=== PATIENT | female | born 1990 | race African-American/Black ===

== ENCOUNTER 2017-10-06 15:23 | Emergency (ER) | payer SELFPAY ==
[~2017-10-06] VITALS: Ht 175.3 cm; Wt 78.5 kg
[2017-10-06 15:40] VITALS: BP 162/70
[2017-10-06 16:10] LABS: APPEARANCE,URINE CLEAR; BILIRUBIN, URINE NEGATIVE (NEGATIVE); GLUCOSE, URINE (UA) NEGATIVE (NEGATIVE); KETONES,URINE 1+ (NEGATIVE); LEUKOCYTE ESTERASE ,URINE 3+ (NEGATIVE); NITRITE,URINE NEGATIVE (NEGATIVE); PH,URINE 6 (4.5-8.0); PROTEIN,URINE NEGATIVE (NEGATIVE); UROBILINOGEN,URINE 1 MG/DL (0.0-1.0)
[2017-10-06 16:27] LABS: COLOR,URINE YELLOW
[2017-10-06 17:17] LABS: BASOPHILS % (AUTO) 0.7 % (0.0-2.0); EOSINOPHILS % (AUTO) 1.1 % (0.0-3.0); HEMATOCRIT 39.5 % (37.0-47.0); LYMPHOCYTES % (AUTO) 17.5 % (20.0-45.0); MEAN CORPUSCULAR VOLUME 82 FL (80-99); MONOCYTES % (AUTO) 8.7 % (1.0-10.0); NEUTROPHILS % (AUTO) 72.1 % (45.0-75.0); PLATELET COUNT 296 K/UL (150-450); RED CELL DISTRIBUTION WIDTH 13.6 % (11.6-14.8); WHITE BLOOD COUNT 9.4 K/UL (4.8-10.8)
[2017-10-06 17:24] LABS: ANION GAP 8 mmol/L (5-15); BLOOD UREA NITROGEN 10 mg/dL (7-18); CARBON DIOXIDE 25 MMOL/L (21-32); CHLORIDE 107 MMOL/L (98-107); CREATININE 0.8 MG/DL (0.55-1.30); POTASSIUM 3.6 MMOL/L (3.5-5.1); SODIUM 139 MMOL/L (136-145)
[2017-10-06 17:28] LABS: ALANINE AMINOTRANSFERASE 17 U/L (12-78); ALBUMIN 3.8 G/DL (3.4-5.0); ALKALINE PHOSPHATASE 52 U/L (46-116); ASPARTATE AMINO TRANSFERASE 15 U/L (15-37); BILIRUBIN,TOTAL 0.6 MG/DL (0.2-1.0)
[2017-10-06] MEDS ORDERED: ZyPREXA Zydis 10mg tab ORAL ONE (17:30)
--- NOTE | 2017-10-06 19:18 | Emergency Room Report ---
History of Present Illness General Chief Complaint: Behavioral Complaint Source: Patient (Sandie Reyna) Present Illness HPI 27-year-old female presents to the emergency department brought by ambulance after [address]. According to EMS patient stated that she ran out of her psychiatric medications and she does not feel well. Patient makes multiple bizarre comments during interview and physical exam. Such as "just gave last night to my son fernando and that the baby crying in the hallway is him" in regards to intermittent twitching patient states that "she feels that she is having mermaid fish fins trying to come out of her skin." She also reports that "last night she was unable to grow her butterfly wings." She denies drug use she states that she previously was prescribed Seroquel and has not taken it for "a long time " patient first denied previous psychiatric hospitalizations and then on subsequent interviews she stated that she had been to multiple psychiatric hospitals but she did not want to talk about it. Patient denies SI or HI. She also reports several times that she communicates with her father and another female whom are . HPI and ROS are limited due to pt. mental status and being poor historian. (Sandie Reyna) Allergies: Coded Allergies: No Known Allergies (Unverified , 10/06/17) Patient History Past Medical History: see triage record Past Surgical History: none Pertinent Family History: none Now: No Reviewed Nursing Documentation: PMH: Agreed, PSxH: Agreed (Sandie Reyna) Nursing Documentation-PMH Past Medical History Deferred: Pt Cognitively Impaired Past Medical History: No Stated History (Sandie Reyna) Review of Systems All Other Systems: negative except mentioned in HPI (Sandie Reyna) Physical Exam Vital Signs Date Time Temp Pulse Resp B/P (MAP) Pulse Ox O2 Delivery O2 Flow Rate FiO2 10/06/17 15:14 100.9 120 16 162/70 98 Room Air Sp02 EP Interpretation: reviewed, normal General Appearance: no apparent distress, alert, GCS 15, non-toxic Head: normocephalic, atraumatic Eyes: bilateral eye PERRL ENT: hearing grossly normal, normal voice Neck: full range of motion Respiratory: lungs clear, normal breath sounds, speaking full sentences Cardiovascular #1: regular rate, rhythm Gastrointestinal: normal bowel sounds, non tender, soft Genitourinary: normal inspection, other - no obvious vaginal rashes or d/c Musculoskeletal: back normal, gait/station normal, normal range of motion, non- tender Neurologic: alert, responsive, motor strength/tone normal, sensory intact, speech normal - clear speech, able to formulate sentences, grossly normal Psychiatric: judgement/insight normal, no suicidal/homicidal ideation, other - Pt has flat affect with bizarre delusions. No SI/HI. - Pt. is calm and cooperative. laughs at inappropriate times. Skin: normal color, no rash, warm/dry, well hydrated (Sandie Reyna) Medical Decision Making PA Attestation Dr. capellan is my supervising Physician whom patient management has been discussed with. 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 According to EMS patient stated that she ran out of her psychiatric medications and she does not feel well. Patient makes multiple bizarre comments during interview and physical exam. Such as "just gave last night to my son fernando and that the baby crying in the hallway is him" in regards to intermittent twitching patient states that "she feels that she is having mermaid fish fins trying to come out of her skin." She also reports that "last night she was unable to grow her butterfly wings." She denies drug use she states that she previously was prescribed Seroquel and has not taken it for "a long time " patient first denied previous psychiatric hospitalizations and then on subsequent interviews she stated that she had been to multiple psychiatric hospitals but she did not want to talk about it. Patient denies SI or HI. She also reports several times that she communicates with her father and another female whom are . HPI and ROS are limited due to pt. mental status and being poor historian. Pt has flat affect with bizarre delusions. No SI/HI. - Pt. is calm and cooperative. laughs at inappropriate times. Ddx considered but are not limited to OD, SI/HI, psychosis, UTI, intoxication Vital signs: are WNL, pt. had low grade fever or 100.6 at triage. H&PE are most consistent with behavioral/mental health issue ORDERS: -CBC, CMP: Unremarkable -UA: see results attached - Few Bacteria, however elevated WBC's and Leuks. -UDS: NEGATIVE -Salicylates and Acetaminophen - no acute intoxication. ED INTERVENTIONS: -Tylenol PO - Zyprexa Zydis 20mg PO -Macrobid PO -Seroquel 50mg PO - Dr. Qiu (Psych.) Consulted - anti psych initiated PO in ED. disposition will be determined by response to medications, otherwise will be evaluated in the a.m. DISPOSITION: Pt. is Medically cleared and awaiting Psychiatric Evaluation. Labs Test 10/06/17 15:48 10/06/17 16:56 Urine Color Yellow Urine Appearance Clear Urine pH 6 (4.5-8.0) Urine Specific [place] 1.025 (1.005-1.035) Urine Protein Negative (NEGATIVE) Urine Glucose (UA) Negative (NEGATIVE) Urine Ketones 1+ (NEGATIVE) Urine Occult Blood Negative (NEGATIVE) Urine Nitrite Negative (NEGATIVE) Urine Bilirubin Negative (NEGATIVE) Urine Urobilinogen 1 MG/DL (0.0-1.0) Urine Leukocyte Esterase 3+ (NEGATIVE) Urine RBC 0-2 /HPF (0 - 2) Urine WBC 5-10 /HPF (0 - 2) Urine Squamous Epithelial Cells Few /LPF (NONE/OCC) Urine Bacteria Few /HPF (NONE) Urine Opiates Screen Negative (NEGATIVE) Urine Barbiturates Screen Negative (NEGATIVE) Phencyclidine (PCP) Screen Negative (NEGATIVE) Urine Amphetamines Screen Negative (NEGATIVE) Urine Benzodiazepines Screen Negative (NEGATIVE) Urine Cocaine Screen Negative (NEGATIVE) Urine Marijuana (THC) Screen Negative (NEGATIVE) White Blood Count 9.4 K/UL (4.8-10.8) Red Blood Count 4.80 M/UL (4.20-5.40) Hemoglobin 13.0 G/DL (12.0-16.0) Hematocrit 39.5 % (37.0-47.0) Mean Corpuscular Volume 82 FL (80-99) Mean Corpuscular Hemoglobin 27.0 PG (27.0-31.0) Mean Corpuscular Hemoglobin Concent 32.8 G/DL (32.0-36.0) Red Cell Distribution Width 13.6 % (11.6-14.8) Platelet Count 296 K/UL (150-450) Mean Platelet Volume 7.6 FL (6.5-10.1) Neutrophils (%) (Auto) 72.1 % (45.0-75.0) Lymphocytes (%) (Auto) 17.5 % (20.0-45.0) Monocytes (%) (Auto) 8.7 % (1.0-10.0) Eosinophils (%) (Auto) 1.1 % (0.0-3.0) Basophils (%) (Auto) 0.7 % (0.0-2.0) Sodium Level 139 MMOL/L (136-145) Potassium Level 3.6 MMOL/L (3.5-5.1) Chloride Level 107 MMOL/L (98-107) Carbon Dioxide Level 25 MMOL/L (21-32) Anion Gap 8 mmol/L (5-15) Blood Urea Nitrogen 10 mg/dL (7-18) Creatinine 0.8 MG/DL (0.55-1.30) Estimat Glomerular Filtration Rate > 60 mL/min (>60) Glucose Level 79 MG/DL (74-106) Calcium Level 9.0 MG/DL (8.5-10.1) Total Bilirubin 0.6 MG/DL (0.2-1.0) Aspartate Amino Transf (AST/SGOT) 15 U/L (15-37) Alanine Aminotransferase (ALT/SGPT) 17 U/L (12-78) Alkaline Phosphatase 52 U/L (46-116) Total Protein 7.5 G/DL (6.4-8.2) Albumin 3.8 G/DL (3.4-5.0) Globulin 3.7 g/dL Albumin/Globulin Ratio 1.0 (1.0-2.7) Salicylates Level 0.2 ug/mL (2.8-20) Acetaminophen Level < 2 MCG/ML (10-30) Serum Alcohol < 3 mg/dL (Sandie Reyna P.A.) ER Course Please see above H and P. Patient more calm. Dr. Qiu suggested Haldol Decanoate. This was given. Denies SI or HI. Purposeful. Patient agrees with discharge plan. Given Rx for Macrobid. (Davian Alvarez M.D.) Last Vital Signs Date Time Temp Pulse Resp B/P (MAP) Pulse Ox O2 Delivery O2 Flow Rate FiO2 10/06/17 15:40 100.9 16 162/70 98 Room Air 10/06/17 15:14 120 (Sandie Reyna.ADee) Last Vital Signs Date Time Temp Pulse Resp B/P (MAP) Pulse Ox O2 Delivery O2 Flow Rate FiO2 10/08/17 12:55 98.7 98 17 122/78 99 Room Air Status: improved (Davian Alvarez M.D.) Disposition: HOME, SELF-CARE Condition: Improved Signed Out To: Dr. Anderson Physician Consult: Dr. Qiu (Sandie Reyna PLe) Scripts Nitrofurantoin Monohyd/M-Cryst* (MACROBID 100 MG*) 100 Mg Capsule 100 MG ORAL EVERY 12 HOURS, #14 CAP Prov: Davian Alvarez M.D. 10/08/17 Referrals: NOT CHOSEN IPA/,REFERRING (PCP) Sandie Reyna Oct 06, 2017 19:18 Davian Alvarez M.D. Oct 08, 2017 12:09
[2017-10-06 20:00] VITALS: BP 141/74
[2017-10-07 00:15] VITALS: BP 130/76
[2017-10-07 04:30] VITALS: BP 124/73
[2017-10-07 08:26] VITALS: BP 131/78
[2017-10-07 22:00] VITALS: BP 125/72
[2017-10-08 04:24] VITALS: BP 123/81
[2017-10-08 10:01] VITALS: BP 124/77
[2017-10-08] MEDS ORDERED: Haloperidol Decanoate 50mg Inj IM ONE (11:30)
[2017-10-08] MEDS ORDERED: NITROFURANTOIN100 M2 ORAL (12:10)
[2017-10-08 12:52] VITALS: BP 122/78
[2017-10-08 12:55] VITALS: BP 122/78
--- NOTE | 2017-10-09 10:15 | Consultation ---
DATE OF CONSULTATION: 10/08/2017 NOTE: POOR AUDIO HISTORY OF PRESENT ILLNESS: This is a 27-year-old female with schizophrenia, who has been admitted to the hospital after the patient was brought in by an ambulance after calling 911. At the time of arrival, the patient I believe that she just gave to her son, however, the patient has been noncompliant with her medications and is having persecutory delusions, is also disorganized and makes at times nonsensical statements. Over the past two days, the patient has cleared up. The patient is more lucid and less delusional, stated that she has had several psychiatric hospitalizations in the past. No suicide attempts in the past, has been noncompliant with medication due to side effects. The patient is not endorsing any suicidal or homicidal ideations. She is not an imminent danger to self or others. PAST PSYCHIATRIC HISTORY: She has history of schizophrenia, several psychiatric hospitalizations. PAST MEDICAL HISTORY: Significant for obesity. She other medical issues. ALLERGIES: No known drug allergies. SUBSTANCE ABUSE HISTORY: No history of illicit drug use or alcohol. is negative for any drugs. MENTAL STATUS EXAMINATION: The patient is alert and oriented x3. Mood is irritable. Affect is constricted, congruent with mood. Thought process is linear. Thought content, positive for delusions. Insight and judgment is non-existent. ASSESSMENT: AXIS I Schizophrenia, chronic paranoid type by history. AXIS II Deferred. AXIS III As above. AXIS IV Low. AXIS V Global assessment of functioning is 50. PLAN: 1. The patient will be discharged after she receives Haldol Decanoate. 2. She was treated with Zyprexa and Seroquel. 3. Her psychiatrist will be notifying, also call to get any collateral information or any concerns. 4. The patient will be discharged with followup with a psychiatrist. Yu Qiu M.D. DR: BROOKS JOB#: [id number] CC:
== END 2017-10-08 12:58 | disposition home or self-care (01) ==
LOC: EDBD 15:23 → EMR 16:01
DX: F91.9 Conduct disorder, unspecified (principal); F23 Brief psychotic disorder; F22 Delusional disorders; N39.0 Urinary tract infection, site not specified
CPT/HCPCS: 36415; 80053; 80307; 81003; 85025; 96372; 99285; G0480; J1631; 80329